=== PATIENT | female | born 1995 | race Caucasian/White ===

== ENCOUNTER 2018-08-07 11:15 | Outpatient (CLI) | payer OTHER ==
--- NOTE | 2018-08-07 14:35 | ULT ---
COMPLETE OB UTLRASOUND GREATER THAN 14 WEEKS: HISTORY: Supervision of with history of labor in 2nd trimester. Complete anatomy, size and dates, 23-year-old female. FINDINGS: Single viable intrauterine fetus is noted in transverse lie on the maternal right side. Placenta is posterior. Amniotic fluid is within normal limits. heart rate 140 b.p.m. Anatomy: Visualized brain, 4-chamber heart, 3-vessel cord, stomach, bladder, kidneys, spine, and extremi ty regions are unremarkable. Biometry: BPD 4.3 cm-19 weeks 0 days Head circumference 16.1 cm-19 weeks 0 days Abdominal circumference 15 cm-20 weeks 2 days Femur length 3 cm-19 weeks 1 day IMPRESSION: Single viable intrauterine fetus at 19 weeks 3 days, estimated date of delivery of 12/29/2018. Estima jules weight 301 gm. Unremarkable single viable intrauterine . POS: [facility]
== END 2018-08-07 11:16 | disposition home or self-care (01) ==
LOC: BICULT 11:15
PROVIDERS: ATTEND Family Medicine
DX: O09.212 Supervision of pregnancy with history of pre-term labor, second trimester (principal); Z3A.19 19 weeks gestation of pregnancy
CPT/HCPCS: 76805

== ENCOUNTER 2018-12-15 23:05 | Inpatient (IN) | payer OTHER ==
[~2018-12-15 23:05] MED LIST: Bupivacaine/Epinephrine 0.25% 30 ML VIAL ONE
[2018-12-15 23:35] VITALS: BMI 28.3
[2018-12-16] MEDS ORDERED: Butorphanol Tartrate 1 MG/ML VIAL SLOW IVP PRN (00:07)
[2018-12-16] MEDS ORDERED: Promethazine HCl 25 MG/ML VIAL IM PRN ×2 (00:07→01:34)
[2018-12-16] MEDS ORDERED: Ondansetron PF 4 MG/2 ML Vial IVP PRN ×3 (00:07→11:26)
[2018-12-16] MEDS ORDERED: Acetaminophen 500 MG TAB PO PRN (00:07)
[2018-12-16] MEDS ORDERED: NS / Oxytocin 40 units/1000ml 1,000 ML IV SCH ×2 (00:15→11:26)
[2018-12-16] MEDS ORDERED: Misoprostol 200 MCG TAB RC PRN (00:15)
[2018-12-16] MEDS ORDERED: Lidocaine 1% (PF) 30 ML VIAL SC PRN (00:15)
[2018-12-16] MEDS ORDERED: Methylergonovine 0.2 MG/ML VIAL IM PRN (00:15)
[2018-12-16] MEDS ORDERED: Carboprost 250 MCG/ML AMP IM PRN (00:15)
[2018-12-16] MEDS ORDERED: NS w/ Oxytocin 10 units 500 ML IV SCH ×2 (00:15)
[2018-12-16] MEDS ORDERED: Ibuprofen 800 MG TAB PO PRN (00:15)
[2018-12-16] MEDS: Lactated Ringer's 1,000 ML IV SCH ×2 (00:30→06:10)
[2018-12-16] MEDS ORDERED: Fentanyl 4 mcg/Bup 0.1% Cadd 100 ML ONE ×2 (00:31→08:12)
[2018-12-16 00:33] LABS: Hemoglobin 13.6 g/dL (12.0-16.0); Mean Corpuscular HGB CONC 33.6 g/dL (32.0-36.0); Mean Corpuscular Hemoglobin 31.2 pg (27.0-31.0); Mean Corpuscular Volume 92.8 fL (78.0-98.0); Mean Platelet Volume 8.8 fL (7.4-10.4); Platelet Count 353 thou/uL (130-400); RBC Distribution Width 11.2 % (11.5-14.5); Red Blood Cell (RBC) Count 4.36 mill/uL (4.20-5.40); White Blood Cell (WBC) Count 17.4 thou/uL (4.8-10.8)
[2018-12-16 01:22] LABS: Hep B Surf Ag Non-Reactive S/CO (NonReactive)
[2018-12-16] MEDS ORDERED: Acetaminophen 325 MG TAB PO PRN (01:34)
[2018-12-16] MEDS ORDERED: Naloxone HCl 0.4 mg/ml Vial IVP PRN ×2 (01:34)
[2018-12-16] MEDS ORDERED: diphenhydrAMINE 50 MG/ML VIAL IVP PRN (01:34)
[2018-12-16] MEDS ORDERED: Hydrocerin (Eucerin) Cream 120 gm Jar TOP PRN (01:34)
[2018-12-16] MEDS ORDERED: Lactated Ringer's 500 ML IV PRN (01:34)
[2018-12-16] MEDS ORDERED: ePHEDrine/0.9% NaCl/PF SYRINGE 50 mg/10 ml SLOW IVP PRN (01:34)
[2018-12-16] MEDS ORDERED: Fentanyl 4 mcg/Bupivacaine 0.1% Cassette 100 ML EPIDURAL SCH (01:45)
[2018-12-16] MEDS ORDERED: Communication Order-Pharmacy FS SCH (01:45)
[2018-12-16 03:57] LABS: Syphilis Antibody Nonreactive (Nonreactive); Syphilis Antibody Index 0.07 S/CO (<1.00 Non-Reactive)
[2018-12-16] MEDS ORDERED: NS w/ Oxytocin 10 units 500 ML IVPB SCH (06:45)
[2018-12-16] MEDS ORDERED: Benzocaine-Menthol 82.5 ML CAN TOP PRN (11:26)
[2018-12-16] MEDS ORDERED: Adacel (T-DAP) 0.5 ML SYRINGE IM ONE (11:26)
[2018-12-16] MEDS ORDERED: diphenhydrAMINE 25 MG CAP PO PRN (11:26)
[2018-12-16] MEDS ORDERED: HYDROcodone/Acetaminophen 5/325 mg Tablet PO PRN ×2 (11:26)
[2018-12-16] MEDS ORDERED: Bisacodyl 10 MG SUPP PR PRN (11:26)
[2018-12-16] MEDS ORDERED: Milk Of Magnesia 30 ML UDCUP PO PRN (11:26)
[2018-12-16] MEDS ORDERED: Lanolin Ointment 7 GM TUBE TOP PRN (11:26)
[2018-12-16] MEDS: Ibuprofen 800 MG TAB PO SCH (22:03)
[2018-12-16] MEDS: Docusate Calcium (SURFAK) 240 MG CAP PO SCH (22:04)
[2018-12-17] MEDS: Ferrous Sulfate 325 MG TAB PO SCH ×2 (00:38→09:35)
[2018-12-17] MEDS: Ibuprofen 800 MG TAB PO SCH ×3 (00:40→14:05)
[2018-12-17 06:56] LABS: Mean Corpuscular HGB CONC 33.5 g/dL (32.0-36.0); Mean Corpuscular Hemoglobin 31.7 pg (27.0-31.0); Mean Corpuscular Volume 94.6 fL (78.0-98.0); Mean Platelet Volume 8.2 fL (7.4-10.4); Platelet Count 264 thou/uL (130-400); RBC Distribution Width 11.2 % (11.5-14.5); Red Blood Cell (RBC) Count 3.47 mill/uL (4.20-5.40); White Blood Cell (WBC) Count 11.7 thou/uL (4.8-10.8)
[2018-12-17] MEDS ORDERED: Prenatal Vitamin 1 TAB PO SCH (09:00)
[2018-12-17] MEDS: Docusate Calcium (SURFAK) 240 MG CAP PO SCH (09:35)
[2018-12-17 14:12] VITALS: BP 114/60; TEMP 98.4
== END 2018-12-17 17:10 | disposition home or self-care (01) | DRG 807 ==
LOC: L&D/OP 23:05 → L&D 12-16 00:01 → 3SW 12-16 19:44
PROVIDERS: ADMIT Family Medicine; ATTEND Family Medicine
PROC: 10E0XZZ Delivery of Products of Conception, External Approach (ICD-10-PCS; principal; 2018-12-16)
DX: O80 Encounter for full-term uncomplicated delivery (principal); Z37.0 Single live birth; Z3A.38 38 weeks gestation of pregnancy
CPT/HCPCS: 36415; 51702; 85027; 86780; 86850; 86900; 86901; 87340; 90715; 99285; J2001; J2405; J2590